=== PATIENT | female | born 1990 | race Caucasian/White ===

== ENCOUNTER → 2024-08-11 08:10 | Outpatient (REF) | payer BC, SELFPAY | LOC: HWRAD 08:10 | PROVIDERS: ATTENDING PHYSICIAN Urology; FAMILY PHYSICIAN Family Medicine | DX: N39.0 Urinary tract infection, site not specified (principal); M62.89 Other specified disorders of muscle | CPT/HCPCS: 76770; 76856 ==

== ENCOUNTER → 2024-10-30 07:47 | Outpatient (REF) | payer BC, SELFPAY | LOC: REG 07:47 | PROVIDERS: ATTENDING PHYSICIAN Urology; FAMILY PHYSICIAN Family Medicine | DX: N39.0 Urinary tract infection, site not specified (principal); A49.02 Methicillin resistant Staphylococcus aureus infection, unspecified site | CPT/HCPCS: 87070 ==

== ENCOUNTER → 2024-11-06 08:13 | Outpatient (REF) | payer BC, SELFPAY | LOC: REG 08:13 | PROVIDERS: ATTENDING PHYSICIAN Urology; FAMILY PHYSICIAN Family Medicine | DX: N39.0 Urinary tract infection, site not specified (principal); A49.02 Methicillin resistant Staphylococcus aureus infection, unspecified site | CPT/HCPCS: 87070 ==

== ENCOUNTER 2025-01-17 11:05 | Emergency (ER) | payer BC, SELFPAY ==
[2025-01-17 11:33] VITALS: BP 139/103
--- NOTE | 2025-01-17 12:32 | ED.GENMED ---
History of Present Illness
<Amairani Diaz MD, Resident - Last Filed: 01/17/25 15:41>
General
Chief Complaint: Abdominal Pain
Source: patient
Exam Limitations: none
Time Seen by Provider: 01/17/25 12:13
Nursing documentation reviewed up to this point in time: agreed with
History of Present Illness
History of Present Illness:
Pt is a 34yo F with a hx of external hemorrhoids who presents w 6mo of pain w defecation and recent episode of bright red blood from rectum.
Pt states that she has been having severe crampy, bilateral, lower abdominal pain with defecation for the last 6 months. She also experiences anal pain with defecation. She has a known hx of external hemorrhoids (s/p 4 pregnancies), which she treats
with preparation H as needed. States that this feels different. Yesterday evening, she felt the urge to defecate but instead passed only bright red blood from her rectum. No clots, pt estimates about 1/8 cup blood. Denies feeling lightheaded. Denies
f/c. Endorses ongoing crampy lower abd pain on presentation at rest. Denies any fam hx of colon cancer or IBD. Endorses feeling nauseous during episodes of bowel movements. Denies any constipation or hx of straining to pass BM; BM typically soft.
Endorses relatively new dyspareunia and irregular menstrual cycles. Denies any correlation between rectal pain/bleeding and menses.
Past History
<Amairani Diaz MD, Resident - Last Filed: 01/17/25 15:41>
Past History
ED Past Medical History: None and Psychiatric (Anxiety); Negative Asthma, HTN, Hypercholesterolemia or NIDDM
ED Past Surgical History: None
Social History
Tobacco: Non-smoker
Alcohol: Occasional
Personal:
Living: with family
Employment: Employed
Review of Systems
<Amairani Diaz MD, Resident - Last Filed: 01/17/25 15:41>
Review of Systems
All Other Systems: ROS reviewed and negative except as documented in HPI and ROS
Constitutional: Reports no symptoms
EENT: Reports no symptoms
Respiratory: Reports no symptoms
Cardiac: Reports no symptoms
ABD/GI: Reports abdominal pain, nausea, bloody stools and pain (anal pain)
: Reports no symptoms
Musculoskeletal: Reports no symptoms
Skin: Reports no symptoms
Neurological: Reports no symptoms
Psychiatric: Reports no symptoms
Phy Exam
<Amairani Diaz MD, Resident - Last Filed: 01/17/25 15:41>
General Physical Exam
General Presentation: well appearing
General age: appears stated age
General Skin: warm and dry
General Habitus: normal
General Mental: alert
General Hydration: appears well hydrated
Cardiovascular Exam
Cardiovascular Exam: regular rate/rhythm and no edema
Heart Sounds: normal
Pulmonary Exam
Pulmonary Exam: no respiratory distress
Gastrointestinal Exam
Gastrointestinal Exam: soft, non distended and tender (tender to palpation in central lower abdomen )
Rectal Exam: hemorrhoids (external, non-thrombosed, non-irritated)
Neurological Exam
Neurological Exam: alert
Musculoskeletal Exam
Musculoskeletal Exam: no edema
Skin Exam
Skin Exam: normal color and warm/dry
Psychiatric Exam
Psychiatric Exam: normal mood/affect
Course
<Amairani Diaz MD, Resident - Last Filed: 01/17/25 15:41>
Orders/Labs/Results
Orders:
Orders
01/17/25 12:48
Test Result ONCE
01/17/25 13:05
US Pelvis W Transvag Combined Stat
Comment:
Reason For Exam: pelvic pain
01/17/25 13:30
Complete Blood Count/With Diff Urgent
Comprehensive Metabolic Panel Urgent
HCG, Serum Qualitative Screen Urgent
01/17/25 15:22
Urinalysis Reflex To Culture Urgent
Date Specimen was Collected: 01/17/25
Time Specimen was Collected: 14:55
Urine Microscopic Reflex Cult Urgent
Urine Culture Urgent
RISSA Source: U
Specimen Description:
Date Specimen was Collected: 01/17/25
Time Specimen was Collected: 14:55
Abnormal Lab Results
01/17/25 01/17/25
13:30 15:22
MPV 10.8 H fL
(7.4-10.4)
Lymphocytes % 19.6 L %
(20.5-51.1)
Leukocyte Esterase Rfl 2+ A
(Negative)
Urine WBC (Reflex) 16-20 A /HPF
(0-5)
Urine Bacteria (Reflex) Moderate A
(Negative)
01/17/25 13:30
01/17/25 13:30
Vital Signs
Initial and Last Documented VS:
Initial Vital Signs
Temp Pulse Resp BP Pulse Ox
98.3 F 111 16 139/103 99
01/17/25 11:33 01/17/25 11:33 01/17/25 11:33 01/17/25 11:33 01/17/25 11:33
Last Documented Vital Signs
Temp Pulse Resp BP Pulse Ox
98.3 F 90 16 120/83 100
01/17/25 11:33 01/17/25 15:35 01/17/25 11:33 01/17/25 15:23 01/17/25 15:24
<Vinh Lott, DO - Last Filed: 01/17/25 12:40>
Orders/Labs/Results
Orders:
Orders
01/17/25 12:48
Test Result ONCE
01/17/25 13:05
US Pelvis W Transvag Combined Stat
Comment:
Reason For Exam: pelvic pain
01/17/25 13:30
Complete Blood Count/With Diff Urgent
Comprehensive Metabolic Panel Urgent
HCG, Serum Qualitative Screen Urgent
01/17/25 15:22
Urinalysis Reflex To Culture Urgent
Date Specimen was Collected: 01/17/25
Time Specimen was Collected: 14:55
Urine Microscopic Reflex Cult Urgent
Urine Culture Urgent
RISSA Source: U
Specimen Description:
Date Specimen was Collected: 01/17/25
Time Specimen was Collected: 14:55
Abnormal Lab Results
01/17/25 01/17/25
13:30 15:22
MPV 10.8 H fL
(7.4-10.4)
Lymphocytes % 19.6 L %
(20.5-51.1)
Leukocyte Esterase Rfl 2+ A
(Negative)
Urine WBC (Reflex) 16-20 A /HPF
(0-5)
Urine Bacteria (Reflex) Moderate A
(Negative)
01/17/25 13:30
01/17/25 13:30
Vital Signs
Initial and Last Documented VS:
Initial Vital Signs
Temp Pulse Resp BP Pulse Ox
98.3 F 111 16 139/103 99
01/17/25 11:33 01/17/25 11:33 01/17/25 11:33 01/17/25 11:33 01/17/25 11:33
Last Documented Vital Signs
Temp Pulse Resp BP Pulse Ox
98.3 F 90 16 120/83 100
01/17/25 11:33 01/17/25 15:35 01/17/25 11:33 01/17/25 15:23 01/17/25 15:24
<Amairani Diaz MD, Resident - Last Filed: 01/17/25 15:41>
MDM/Problems Addressed
Differential Diagnosis Includes:
Pelvic floor dysfxn
IBD (UC vs. Crohn's)
Endometriosis
Thrombosed external hemorrhoid (not seen on exam)
External hemorrhoid inflammation
Anal fissure (not seen on exam)
Constipation
[facility] malignancy
MDM/Problems Addressed:
- CBC, CMP
- UA w reflex to cx
- bHcg
- US pelvis
<Amairani Diaz MD, Resident - Last Filed: 01/17/25 15:41>
*Pulse Oximetry
SaO2: 99
Oxygen Mode of Delivery: Room air
Patient hypoxic: no
*Critical Care Note
Total Time (30-74mins, 75-104mins- exclusive of procedures): Not Applicable
<Amairani Diaz MD, Resident - Last Filed: 01/17/25 15:41>
Update Note
Update Note:
3:30pm
Pelvic US with the following findings:
'Small fibroid within the myometrium of the anterior uterine body.
Normal appearance of the endometrium.
Normal appearance of both ovaries. No evidence for abnormal adnexal mass or free pelvic fluid.'
Will plan to discharge patient with f/u with [facility] & GI for further w/u. Likely component of pelvic floor dysfunction and external hemorrhoids.
ED Attending Note
<Amairani Diaz MD, Resident - Last Filed: 01/17/25 15:41>
-
Portions of this chart may have been created with voice recognition software.� Occasional wrong word or��sound alike� substitutions may have occurred due to the inherent limitations of voice recognition software.
<Vinh Lott, - Last Filed: 01/17/25 12:40>
ED Attending Note
Patient seen and examined by attending physician: Yes
I performed a history and physical exam of patient and discussed management with resident, I reviewed resident's note and agree with documented findings and plan of care.: Yes
Discharge Plan
Departure
Patient Disposition: Home (Routine Discharge)
Date of Disposition: 01/17/25
Time of Disposition: 15:36
Patient with high blood pressure during this ER visit?: No
Condition: Good
Covid-19: Not Applicable
Discharge Problem:
Pelvic pain
Referrals:
Eveline Dennis MD [Family Provider, Family Practice]
Sacha León MD [Active, Gastroenterology] - Follow up in 5-7 days
Activity Restrictions/Additional Instructions:
You were seen in the ED today for cramping pelvic pain with defecation and blood from the rectum today. Your urinalysis was negative for a sign of a urinary tract infection, and pelvic ultrasound just demonstrated a small uterine fibroid. Your labs
were not concerning for an infectious or inflammatory process.
We recommend that you follow up with your [facility] [employer] and GI doctor (reference provided) for further workup and management of your symptoms. There is a change that pelvic floor dysfunction and your external hemorrhoids were both contributing to the
symptoms you had.
Please return to the ED if you have ongoing or higher volume blood in your stool or worsening abdominal pain.
Interventions
Interventions:
*Risk Screen - Suicide Last Done: 01/17/25 11:33
*General Assessment Last Done: 01/17/25 11:33
*Neglect/Abuse Screening Last Done: 01/17/25 11:33
*ED COVID-19 Vaccine History Last Done: 01/17/25 11:33
*ED Influenza Vaccine History Last Done: 01/17/25 11:33
Discharge Date and Time
Print Language: [place]
[2025-01-17 13:37] LABS: Hematocrit 37.7 % (37.0-47.0); Hemoglobin 12.6 g/dL (12.0-16.0); Mean Corp Hgb Conc. 33.4 g/dL (33.0-37.0); Mean Corpuscular Volume 82.0 fL (81.0-99.0); Nucleated Red Blood Cells % 0 %; Platelet Count 243 10^3/uL (130-400); Red Cell Dist. Width 12.6 % (11.5-14.5)
[2025-01-17 13:54] LABS: HCG, Serum Qualitative Screen Negative
[2025-01-17 14:01] VITALS: BP 127/91
[2025-01-17 14:02] LABS: ALT (SGPT) 14 U/L (0-35); AST (SGOT) 19 U/L (14-36); Albumin 4.4 g/dl (3.5-5.0); Alkaline Phosphatase 40 U/L (38-126); Blood Urea Nitrogen 7 mg/dl (7-17); Calcium 9.4 mg/dl (8.4-10.2); Carbon Dioxide 28 mmol/L (22-30); Chloride 102 mmol/L (98-107); Glucose 92 mg/dl (70-99); Potassium 3.9 mmol/L (3.5-5.1); Sodium 136 mmol/L (135-145); Total Protein 7.6 g/dl (6.3-8.2); eGFR > 60.00
[2025-01-17 15:23] VITALS: BP 120/83
[2025-01-17 15:33] LABS: Urine Character Clear (Clear)
[2025-01-17 15:39] LABS: Urine Squamous Cell 21-25 /LPF (Few)
[2025-01-17 15:40] LABS: Urine Red Blood Cell 0-2 /HPF (0-2); Urine White Cell 16-20 /HPF (0-5)
[2025-01-17 16:00] VITALS: BP 100/62
== END 2025-01-17 16:30 | disposition home or self-care (01) ==
LOC: EMR 11:05
PROVIDERS: EMERGENCY PHYSICIAN Emergency Medicine; FAMILY PHYSICIAN Family Medicine
DX: R10.20 Pelvic and perineal pain unspecified side (principal); D25.1 Intramural leiomyoma of uterus; K64.4 Residual hemorrhoidal skin tags
CPT/HCPCS: 99284; 76830; 76856; 80053; 81003; 81015; 84703; 85025; 87086